=== PATIENT | male | born 1965 | race African-American/Black ===

== ENCOUNTER 2022-05-10 22:59 | Emergency (ER) | payer MEDICARE, MEDICAID ==
[~2022-05-10] VITALS: Ht 188 cm; Wt 104.0 kg
[2022-05-10 23:15] VITALS: BP 110/65
[2022-05-10 23:56] LABS: HEMOGLOBIN. 13.2 g/dL (14.0-18.0); MEAN CORPUSCULAR HEMOGLOBIN 30.7 pg (28.0-32.0); MEAN PLATELET VOLUME 7.9 fl (7.4-10.4); PLATELET 134 x1000/uL (130-400); RED BLOOD CELL COUNT 4.28 mill/uL (4.7-6.1); RED CELL DISTRIBUTION WIDTH 19.9 % (11.6-14.6)
[2022-05-11 00:01] LABS: CHLORIDE 106 mEq/L (98-107)
[2022-05-11 00:12] LABS: ETHANOL BLOOD < 10 mg/dL
[2022-05-11] MEDS ORDERED: FUROSEMIDE 100MG/10ML VIAL IV NR (00:13)
[2022-05-11] MEDS ORDERED: SODIUM BICARBONATE 8.4% 1 MEQ/ML 50ML SYR IV NR (00:15)
[2022-05-11] MEDS ORDERED: CALCIUM CHLORIDE 1GM/10ML SYR IV NR (00:15)
[2022-05-11 00:44] LABS: PLATELET ESTIMATE NORMAL
[2022-05-11] MEDS: ALBUTEROL (0.083%) 2.5MG/3ML NEB HHN NR (00:59)
== END 2022-05-11 01:45 | disposition left against medical advice (07) ==
LOC: ER 22:59
DX: E11.649 Type 2 diabetes mellitus with hypoglycemia without coma (principal); N17.9 Acute kidney failure, unspecified; I49.9 Cardiac arrhythmia, unspecified; Z53.21 Procedure and treatment not carried out due to patient leaving prior to being seen by health care provider
CPT/HCPCS: 36415; 71045; 80053; 80320; 82962; 83880; 84484; 85025; 93005; 94644; 96374; 96375; 99285; J1940; J3490; G0480